=== PATIENT | female | born 1970 | race Two or more races ===

== ENCOUNTER 2021-04-14 03:20 | Emergency (ER) | payer OTHER ==
[~2021-04-14] VITALS: Ht 154.9 cm; Wt 71.4 kg
[2021-04-14] MEDS ORDERED: DiphenhydrAMINE HCL 50 MG/ML VIAL IVP STA (03:55)
[2021-04-14] MEDS ORDERED: KETOROLAC TROMETHAMINE 30 MG/ML VIAL IVP ONE (04:00)
[2021-04-14] MEDS ORDERED: METOCLOPRAMIDE HCL 5 MG/ML 2 ML VIAL IVP ONE (04:00)
[2021-04-14] MEDS ORDERED: SODIUM CHLORIDE 0.9% 1,000 ML IV ONE (04:00)
[2021-04-14] MEDS ORDERED: ACETAMINOPHEN 500 MG TABLET PO ONE (04:00)
[2021-04-14 04:11] LABS: BASOPHILS % (AUTO) 0.6 % (0.0-2.0); HEMATOCRIT 36.5 % (36-46); HEMOGLOBIN 12.8 g/dL (12.0-16.0); LYMPHOCYTES # (AUTO) 4.2 K/uL (1.0-4.8); LYMPHOCYTES % (AUTO) 35.4 % (22.0-44.0); MEAN CORPUSCULAR HEMOGLOBIN 29.6 pg (26.0-34.0); MEAN CORPUSCULAR VOLUME 85 fL (80-100); MONOCYTES # (AUTO) 0.7 K/uL (0.1-1.0); MONOCYTES % (AUTO) 5.5 % (2.0-9.0); NEUTROPHILS # (AUTO) 6.6 K/uL (1.8-7.7); NEUTROPHILS % (AUTO) 55.5 % (40.0-70.0); PLATELET COUNT (AUTO) 447 K/uL (150-450); RED BLOOD CELL COUNT(AUTO) 4.31 MIL/uL (4.00-5.20); RED CELL DISTRIBUTION WIDTH 13.4 % (11.5-14.5)
[2021-04-14 04:21] LABS: ANION GAP 14 mmol/L (8-16); CALCIUM, TOTAL 8.9 mg/dL (8.8-10.5); CARBON DIOXIDE 23 mmol/L (22-29); CHLORIDE 100 mmol/L (98-107); CREATININE 0.78 mg/dL (0.60-1.30); GLOMERULAR FILTR. RATE CALC > 60 mL/min (>60); GLUCOSE,RANDOM 338 mg/dL (70-110); POTASSIUM 3.6 mmol/L (3.5-5.1); SODIUM SERUM 137 mmol/L (136-145); UREA NITROGEN, BLOOD 17 mg/dL (7-18)
[2021-04-14 04:28] LABS: APPEARANCE,URINE CLEAR (CLEAR); BILIRUBIN,URINE NEGATIVE (NEGATIVE); GLUCOSE, URINE (UA) >=1000 mg/dL (NEGATIVE); KETONES,URINE 15 mg/dL (NEGATIVE); LEUKOCYTE ESTERASE ,URINE NEGATIVE (NEGATIVE); NITRATE,URINE NEGATIVE (NEGATIVE); OCCULT BLOOD,URINE NEGATIVE (NEGATIVE); PROTEIN,URINE POS 1+ (NEGATIVE); UROBILINOGEN,URINE 0.2 mg/dL (<=1.0)
[2021-04-14 04:35] VITALS: BP 130/69
[2021-04-14] MEDS ORDERED: GLIP5 PO (04:36)
[2021-04-14] MEDS ORDERED: METF-1211 PO (04:36)
[2021-04-14] MEDS ORDERED: PROV5 PO (04:36)
[2021-04-14 04:43] LABS: BACTERIA,URINE Rare /HPF (None Seen); RBC,URINE None Seen /HPF (0-2); WBC,URINE 0-2 /HPF (0-5)
[2021-04-14] MEDS ORDERED: INSULIN REGULAR, HUMAN 100 UNITS/ML SQ ONE (05:00)
[2021-04-14 06:02] LABS: GLUCOSE,POINT OF CARE 317 MG/DL (70-110)
== END 2021-04-14 06:03 | disposition home or self-care (01) ==
LOC: EMS 03:23
DX: G44.209 Tension-type headache, unspecified, not intractable (principal); E11.65 Type 2 diabetes mellitus with hyperglycemia; F41.9 Anxiety disorder, unspecified
CPT/HCPCS: 36415; 80048; 81001; 82962; 84484; 85025; 93005; 96361; 96372; 96374; 96375; 99284; J1200; J1885; J2765; J7030